=== PATIENT | male | born 2000 | race Two or more races ===

== ENCOUNTER 2024-04-19 15:42 | Emergency (ER) | payer MEDICAID ==
[~2024-04-19] VITALS: Ht 170.2 cm; Wt 72.6 kg
[2024-04-19] MEDS ORDERED: KETOROLAC TROMETHAMINE 15 MG/ML VIAL ONE ×2 (16:22→16:23)
[2024-04-19] MEDS: KETOROLAC TROMETHAMINE 15 MG/ML VIAL IM ONE (16:29)
[2024-04-19] MEDS ORDERED: ACET-2605 PO ×2 (18:36)
[2024-04-19] MEDS ORDERED: HYDR-4303 PO (18:36)
[2024-04-19 18:54] VITALS: BP 136/84; TEMP 98.5; O2SAT 98
== END 2024-04-19 18:53 | disposition admitted as inpatient to this hospital (09) ==
LOC: ER 15:42
DX: S20.213A Contusion of bilateral front wall of thorax, initial encounter (principal); Z60.2 Problems related to living alone; V43.62XA Car passenger injured in collision with other type car in traffic accident, initial encounter; Y93.89 Activity, other specified; Y92.488 Other paved roadways as the place of occurrence of the external cause; Y99.8 Other external cause status
CPT/HCPCS: 99283; 96372; 93005; 71111; J1885